=== PATIENT | male | born 1980 | race African-American/Black ===

== ENCOUNTER 2021-03-09 15:17 | Emergency (ER) | payer MEDICAID ==
[~2021-03-09] VITALS: Ht 172.7 cm; Wt 76.2 kg
[2021-03-09 17:10] VITALS: BP 142/89
== END 2021-03-09 18:20 | disposition left against medical advice (07) ==
LOC: ER 15:17
DX: S61.211A Laceration without foreign body of left index finger without damage to nail, initial encounter (principal); E11.9 Type 2 diabetes mellitus without complications; Z53.21 Procedure and treatment not carried out due to patient leaving prior to being seen by health care provider; Y08.89XA Assault by other specified means, initial encounter; Y93.89 Activity, other specified; Y92.89 Other specified places as the place of occurrence of the external cause; Y99.8 Other external cause status